=== PATIENT | female | born 1960 | race Caucasian/White ===

== ENCOUNTER → 2021-11-04 | Outpatient (CLI) | payer OTHER | END | disposition home or self-care (01) | LOC: LAB SHORT 16:48 | DX: N39.0 Urinary tract infection, site not specified (principal) | CPT/HCPCS: 87077; 87086; 87186 ==

== ENCOUNTER 2023-08-31 07:47 | Day surgery (SDC) | payer OTHER ==
[~2023-08-31] VITALS: Ht 165.1 cm; Wt 81.0 kg
[2023-08-31] MEDS ORDERED: OMEP20ER (08:14)
[2023-08-31] MEDS ORDERED: Zovirax Cream 5%2 GM (08:14)
[2023-08-31] MEDS ORDERED: Cymbalta20 MG (08:14)
[2023-08-31 09:55] VITALS: BP 111/73
== END 2023-08-31 09:53 | disposition home or self-care (01) ==
LOC: ORSCSDS 07:47
PROVIDERS: Specialist
PROC: 0DJD8ZZ Inspection of Lower Intestinal Tract, Via Natural or Artificial Opening Endoscopic (ICD-10-PCS; principal; 2023-08-31 09:00)
DX: Z12.11 Encounter for screening for malignant neoplasm of colon (principal); Z80.0 Family history of malignant neoplasm of digestive organs; K57.30 Diverticulosis of large intestine without perforation or abscess without bleeding; K64.8 Other hemorrhoids; K64.4 Residual hemorrhoidal skin tags; Z86.010 Personal history of colon polyps; F41.9 Anxiety disorder, unspecified; Z79.899 Other long term (current) drug therapy
CPT/HCPCS: J2704; J7120

== ENCOUNTER 2023-09-26 11:16 | Day surgery (SDC) | payer OTHER ==
[2023-09-26] VITALS (16 sets, daily range): BP systolic 100–154; BP diastolic 56–82
[~2023-09-26] VITALS: Ht 165.1 cm; Wt 82.3 kg
[~2023-09-26 11:16] MED LIST: CEPH500 PO; Cymbalta20 MG PO; OMEP20ER PO; TRAZ50 PO; Zovirax Cream 5%2 GM PO
--- NOTE | 2023-09-26 16:31 | NUR ---
ARRIVAL TO SURGICAL UNIT ALERT & PLEASANT. ASSESSMENT CHARTED. DENIES N/V. SNACKS & WATER GIVEN. DINNER TRAY ORDERED.
[2023-09-27 04:16] VITALS: BP 127/67
[2023-09-27 05:30] LABS: BASOPHILS ABSOLUTE AUTO 0.03 K/mm3 (0.00-0.23); BASOPHILS PERCENT AUTO 0 % (0-2); EOSINOPHILS PERCENT AUTO 0 % (0-6); Hematocrit 35.7 % (33.0-51.0); IMMATURE GRAN ABSOLUTE AUTO 0.12 K/mm3 (0.00-0.10); IMMATURE GRAN PERCENT AUTO 1 % (0-1); LYMPHOCYTES ABSOLUTE AUTO 0.82 K/mm3 (0.84-5.20); LYMPHOCYTES PERCENT AUTO 5 % (21-46); MONOCYTES ABSOLUTE AUTO 0.99 K/mm3 (0.16-1.47); MONOCYTES PERCENT AUTO 6 % (4-13); Mean Corpuscular HGB 30.6 pg (26.0-34.0); Mean Corpuscular HGB Conc 33.6 g/dL (31.5-36.5); Mean Corpuscular Volume 91 fL (80-100); NEUTROPHILS ABSOLUTE AUTO 14.72 K/mm3 (1.96-9.15); NEUTROPHILS PERCENT AUTO 88 % (41-73); Platelet Count 265 K/mm3 (150-400); RDW Coefficient Variation 13.2 % (11.7-14.2); RDW Standard Deviation 43.9 fL (35.1-46.3); Red Blood Cell Count 3.92 M/mm3 (3.80-5.20); White Blood Cell Count 16.68 K/mm3 (4.00-11.30)
[2023-09-27 05:59] LABS: Bun/Creatinine Ratio 27.7 (12.0-20.0); Calcium, Blood 8.8 mg/dL (8.5-10.1); Creatinine, Blood 0.51 mg/dL (0.40-1.00); Potassium, Blood 4.2 mmol/L (3.5-5.5)
[2023-09-27 07:00] VITALS: BP 114/75
[2023-09-27] MEDS ORDERED: Percocet 5-3251 EACH PO (09:05)
[2023-09-27] MEDS ORDERED: ASPI81CH PO (09:05)
[2023-09-27 10:49] VITALS: BP 140/77
--- NOTE | 2023-09-27 11:29 | NUR ---
DISCHARGE PT A&OX4, VSS/RA, WIL PO, VOIDING, AMB SBA FWW/GB, UP TO CHAIR, PAIN MANAGED, IV DC'D. DC INS PROVIDED. PT REP UNDERSTANDING THOSE INSTRUCTIONS INCLUDING DRESSING CHANGES. 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
== END 2023-09-27 10:50 | disposition home or self-care (01) ==
LOC: ORSCMMR 11:16 → ORD 12:30 → SURS 16:27 → ORSCMMR 09-27 10:50
PROVIDERS: Orthopaedic Surgery
PROC: 0SRC0JA Replacement of Right Knee Joint with Synthetic Substitute, Uncemented, Open Approach (ICD-10-PCS; principal; 2023-09-26 14:00)
DX: M17.11 Unilateral primary osteoarthritis, right knee (principal); K21.9 Gastro-esophageal reflux disease without esophagitis; F41.9 Anxiety disorder, unspecified; Z79.899 Other long term (current) drug therapy
CPT/HCPCS: 36415; 73560-RT; 80048; 85025; 97110; 97116; 97162; A9270; C1776; J0171; J0690; J0735; J1100; J1885; J2250; J2405; J2704; J2795; J3010; J7120